=== PATIENT | female | born 1985 | race Caucasian/White ===

== ENCOUNTER 2017-02-07 19:51 | Emergency (ER) | payer BC ==
--- NOTE | ~2017-02-07 | EKG ---
PATIENT: BRISEYDA PATEL UNIT #: [id number] Ventricular Rate: 75 BPM Atrial Rate: 75 BPM QRS Duration: 72 ms Q-T Interval: 406 ms QTC Calculation(Bezet): 453 ms Calculated R [place]: 86 degrees Calculated T [place]: 63 degrees Diagnosis Line: Sinus rhythm with A-V dissociation and Accelerated Diagnosis Line: Junctional rhythm with occasional Premature Diagnosis Line: ventricular complexes Diagnosis Line: Abnormal ECG Diagnosis Line: Diagnosis Line: Confirmed by ERVIN TORRES MD ([id number]) on Diagnosis Line: 02/11/2017 12:10:44 AM INTERPRETING MD: BRIAN RODRIGUEZ
[~2017-02-07 19:51] MED LIST: ACETAMINOPHEN; ALBUTEROL17 GM; AMOXICILLIN PO; AZITHROMYCIN1 GM PO; BENTYL10 MG PO; CYMBALTA30 MG PO; FAMOTIDINE PO; IBUPROFEN800 MG; MUCINEX D1 TAB.SR1 PO; NAPROXEN PO; NO MEDICATIONS; PHENERGAN PO; PHENERGAN25 M1 PO; PRENATAL MULTI1 EACH PO; PRENATAL1 TA1; PROZAC40 MG PO; TRAMADOL HCL50 M1; ULTRAM PO
[2017-02-07 19:57] LABS: URINE SOURCE CLEAN CATCH
[2017-02-07 19:59] LABS: URINE APPEARANCE CLEAR; URINE BILIRUBIN NEG (NEG); URINE BLOOD 1+ (NEG); URINE COLOR YELLOW; URINE GLUCOSE NEG (NORM); URINE KETONE TRACE (NEG); URINE LEUKOCYTE ESTERASE NEG (NEG); URINE NITRATE NEG (NEG); URINE PH 6.5 (5-8); URINE PROTEIN NEG (NEG); URINE UROBILINOGEN 0.2 MG/DL (NORM)
[2017-02-07 20:00] LABS: MICRO INDICATED? YES
[2017-02-07 20:05] LABS: CULTURE INDICATED? NO; URINE BACTERIA NEG (NEG); URINE MUCUS PRESENT; URINE SQUAMOUS EPITHELIAL CELL MODERATE /[HPF]
[2017-02-07 20:08] LABS: BLOOD UREA NITROGEN 9 mg/dL (9-23); BUN/CREATININE RATIO 12.85; CALCIUM SERUM 8.7 mg/dL (8.4-10.2); CARBON DIOXIDE 30 mmol/L (22-31); CHLORIDE 106 mmol/L (100-111); CREATININE SERUM 0.7 mg/dL (0.6-1.4); GLOM FILT RATE Estimated ABOVE60 mL/min (>60); GLUCOSE FASTING 111 mg/dL (70-110); POTASSIUM 3.3 mmol/L (3.5-5.1); SODIUM 142 mmol/L (135-145)
[2017-02-07 20:32] LABS: BASOPHIL# 0.1 X10e3 (0-0.3); BASOPHIL% 0.7 % (0-2.5); EOSINOPHIL# 0.3 X10e3 (0-0.7); EOSINOPHIL% 2.6 % (0.0-7.0); HEMATOCRIT 39.3 % (35.0-45.0); LYMPHOCYTE% 30.7 % (17.0-45.0); MEAN CELL VOLUME 91.1 FL (83-96); MEAN CORPUSCULAR HEMOGLOBIN 30.3 PG (28-34); MEAN CORPUSCULAR HGB CONC 33.2 g/dL (30-36); MEAN PLATELET VOLUME 9.2 FL (6.5-11.5); MONOCYTE# 0.6 X10e3 (0-1.0); MONOCYTE% 5.8 % (3.0-12.0); NEUTROPHIL# 5.9 X10e3 (1.5-7.1); NEUTROPHIL% 60.2 % (40-75); PLATELET COUNT 193 X10e3 (140-420); RED BLOOD COUNT 4.31 X10e (3.90-5.30); RED CELL DISTRIBUTION WIDTH 13.8 % (11.0-15.5); WHITE BLOOD COUNT 9.7 X10e3 (4.0-10.5)
[2017-02-07 20:33] LABS: DIFF IND NO
== END 2017-02-07 20:36 | disposition left against medical advice (07) ==
LOC: SED 19:51
PROVIDERS: Physician Assistant
DX: R51 Headache (principal); J45.909 Unspecified asthma, uncomplicated; Z88.5 Allergy status to narcotic agent; F17.200 Nicotine dependence, unspecified, uncomplicated
CPT/HCPCS: 36415; 80048; 81003; 85025; 93005; 96374; 96375; 99284; J1200; J2765